=== PATIENT | female | born 1975 | race Two or more races ===

== ENCOUNTER 2022-06-17 20:16 | Emergency (ER) | payer MEDICAID, OTHER ==
[~2022-06-17] VITALS: Ht 157.5 cm; Wt 55.0 kg
[2022-06-17] MEDS ORDERED: ALBUTEROL SULF 2.5 MG/0.5ML(0.5%) NEB SOLN NEB ONE (20:45)
[2022-06-17] MEDS ORDERED: IPRATROPIUM BROM 0.5 MG/2.5ML INH SOL NEB ONE (20:45)
[2022-06-17 21:58] LABS: Basophils # (auto) 0 10 ^3/uL (0-0.2); Basophils % (auto) 0.5 % (0.0-2.0); Eosinophils # (auto) 0.1 10 ^3/uL (0-0.8); Eosinophils % (auto) 1.5 % (0.0-7.0); Hematocrit 36.8 % (36.0-46.0); Hemoglobin 12.8 g/dL (12.2-16.2); Lymphocytes # (auto) 1.4 10 ^3/uL (0.4-5.4); Lymphocytes % (auto) 24.8 % (10.0-50.0); Mean Corpuscular Hemoglobin 33.1 pg (28.0-32.0); Mean Corpuscular Hgb Conc. 34.7 g/dL (32.0-36.0); Mean Corpuscular Volume 95.4 fL (80.0-100.0); Monocytes # (auto) 0.9 10 ^3/uL (0-1.3); Monocytes % (auto) 15.6 % (0.0-12.0); Neutrophils # (auto) 3.3 10 ^3/uL (1.6-8.6); Neutrophils % (auto) 57.6 % (37.0-80.0); Nucleated Red Blood Cells % 0.1 %; Red Blood Cells 3.86 10^6/uL (4.0-5.20); Red Cell Distribution Width 12.6 % (11.8-14.3); White Blood Cell 5.8 10^3/uL (4.4-10.8)
[2022-06-17 22:15] LABS: Albumin 3.6 g/dL (3.4-5.0); Calcium 7.8 mg/dL (8.5-10.1); Potassium 3.7 mmol/L (3.5-5.1)
[2022-06-17 22:20] LABS: BUN/Creatinine Ratio 14.5; Bilirubin, Total 0.2 mg/dL (0.2-1.0); Total Protein 6.7 g/dL (6.4-8.2)
[2022-06-17] MEDS ORDERED: DexAMETHasone SOD PHOS 10MG/1ML VIAL INJ IM ONE (22:45)
[2022-06-18] MEDS ORDERED: AZIT250T9 PO (00:09)
[2022-06-18] MEDS ORDERED: PRED20TA2 PO (00:09)
[2022-06-18] MEDS ORDERED: AZITHROMYCIN 250 MG TAB PO ONE (00:15)
[2022-06-18 01:20] VITALS: BP 117/70
== END 2022-06-18 02:58 | disposition home or self-care (01) ==
LOC: ER 20:16
DX: J40 Bronchitis, not specified as acute or chronic (principal)
CPT/HCPCS: 36415; 71046; 80053; 85025; 94640; 96372; 99284; J1100; J7644

== ENCOUNTER 2022-09-11 16:17 | Inpatient (IN) | payer MEDICAID ==
[~2022-09-11] VITALS: Ht 162.6 cm; Wt 61.8 kg
[2022-09-11] MEDS: ACCU-CHEK COMFORT CURVE STRIP VI SCH (01:15)
[2022-09-11] MEDS: InsuLIN REG 1unit/0.01ml Soln (100units/ml) SC SCH (01:15)
[2022-09-11] MEDS: CARVEDILOL 3.125 MG TAB PO SCH (01:15)
[2022-09-11] MEDS: ATORVASTATIN 20 MG TAB PO SCH (01:15)
[~2022-09-11 16:17] MED LIST: AZIT250T9 PO; PRED20TA2 PO
[2022-09-11] MEDS ORDERED: ASPirin 325 MG TAB PO ONE (16:30)
[2022-09-11 17:20] LABS: Basophils # (auto) 0.1 10 ^3/uL (0-0.2); Basophils % (auto) 0.7 % (0.0-2.0); Eosinophils # (auto) 0.1 10 ^3/uL (0-0.8); Eosinophils % (auto) 1.2 % (0.0-7.0); Hematocrit 41.7 % (36.0-46.0); Hemoglobin 13.8 g/dL (12.2-16.2); Lymphocytes # (auto) 2.2 10 ^3/uL (0.4-5.4); Mean Corpuscular Hemoglobin 31.5 pg (28.0-32.0); Mean Corpuscular Hgb Conc. 33.1 g/dL (32.0-36.0); Mean Corpuscular Volume 95.1 fL (80.0-100.0); Monocytes # (auto) 0.5 10 ^3/uL (0-1.3); Monocytes % (auto) 6.2 % (0.0-12.0); Neutrophils # (auto) 4.5 10 ^3/uL (1.6-8.6); Neutrophils % (auto) 61.9 % (37.0-80.0); Red Blood Cells 4.39 10^6/uL (4.0-5.20); Red Cell Distribution Width 13.1 % (11.8-14.3); White Blood Cell 7.3 10^3/uL (4.4-10.8)
[2022-09-11 17:40] LABS: Albumin 4.3 g/dL (3.4-5.0); Calcium 8.5 mg/dL (8.5-10.1); Potassium 4.2 mmol/L (3.5-5.1)
[2022-09-11 17:43] LABS: BUN/Creatinine Ratio 24.6; Bilirubin, Total 0.5 mg/dL (0.2-1.0); Total Protein 6.6 g/dL (6.4-8.2)
[2022-09-11] MEDS ORDERED: HYDROcodone-ACET 5/325MG TAB PO PRN (21:15)
[2022-09-11] MEDS ORDERED: DEXTROSE (50%) 50ML SYRG IV PRN (21:15)
[2022-09-11] MEDS ORDERED: MORPHINE SULFATE INJ 2 MG/ml SYRG IV PRN ×2 (21:15→23:15)
[2022-09-11] MEDS ORDERED: ONDANSETRON HCL 4 MG/2 ML VIAL IV PRN (21:15)
[2022-09-11] MEDS ORDERED: DOCUSATE SOD 100 MG CAP PO PRN (21:15)
[2022-09-11] MEDS ORDERED: TEMAZEPAM 15 MG CAP PO PRN (21:15)
[2022-09-11] MEDS ORDERED: NITROGLYCERIN 0.4 MG SL TAB SL PRN (23:15)
[2022-09-12] MEDS: SODIUM CHLOR 0.9% PF (SALINE LOCK) 10ML VIAL/SYR IV SCH ×4 (01:15→22:09)
[2022-09-12 06:07] LABS: Basophils # (auto) 0.1 10 ^3/uL (0-0.2); Basophils % (auto) 1.1 % (0.0-2.0); Eosinophils # (auto) 0.1 10 ^3/uL (0-0.8); Eosinophils % (auto) 2.4 % (0.0-7.0); Hematocrit 40.4 % (36.0-46.0); Hemoglobin 13.6 g/dL (12.2-16.2); Lymphocytes # (auto) 2.5 10 ^3/uL (0.4-5.4); Mean Corpuscular Hemoglobin 31.9 pg (28.0-32.0); Mean Corpuscular Hgb Conc. 33.5 g/dL (32.0-36.0); Mean Corpuscular Volume 95.1 fL (80.0-100.0); Monocytes # (auto) 0.6 10 ^3/uL (0-1.3); Monocytes % (auto) 9.8 % (0.0-12.0); Neutrophils # (auto) 2.5 10 ^3/uL (1.6-8.6); Neutrophils % (auto) 43.7 % (37.0-80.0); Nucleated Red Blood Cells % 0.2 %; Red Blood Cells 4.25 10^6/uL (4.0-5.20); White Blood Cell 5.8 10^3/uL (4.4-10.8)
[2022-09-12 06:19] LABS: Albumin 3.9 g/dL (3.4-5.0); Calcium 8.2 mg/dL (8.5-10.1); Potassium 4.4 mmol/L (3.5-5.1)
[2022-09-12 06:22] LABS: BUN/Creatinine Ratio 23.3; Bilirubin, Total 0.7 mg/dL (0.2-1.0); Total Protein 6.5 g/dL (6.4-8.2)
[2022-09-12] MEDS: ACCU-CHEK COMFORT CURVE STRIP VI SCH ×4 (09:02→22:09)
[2022-09-12] MEDS: InsuLIN REG 1unit/0.01ml Soln (100units/ml) SC SCH ×4 (09:02→22:00)
[2022-09-12] MEDS: ACETAMINOPHEN 325 MG TAB PO PRN (11:20)
[2022-09-12] MEDS: ASPirin 81 mg TAB PO SCH (11:25)
[2022-09-12] MEDS: CARVEDILOL 3.125 MG TAB PO SCH ×2 (11:25→22:00)
[2022-09-12 12:13] VITALS: BP 102/56
[2022-09-12 13:00] VITALS: BP 102/56
[2022-09-12 16:36] VITALS: BP 105/60
[2022-09-12 22:00] VITALS: BP 99/50
[2022-09-12] MEDS: ATORVASTATIN 20 MG TAB PO SCH (22:08)
[2022-09-13 05:00] VITALS: BP 102/57
[2022-09-13] MEDS: SODIUM CHLOR 0.9% PF (SALINE LOCK) 10ML VIAL/SYR IV SCH ×3 (06:29→21:56)
[2022-09-13] MEDS: ACCU-CHEK COMFORT CURVE STRIP VI SCH ×4 (06:29→21:56)
[2022-09-13] MEDS: InsuLIN REG 1unit/0.01ml Soln (100units/ml) SC SCH ×4 (06:32→21:57)
[2022-09-13 07:07] LABS: Urine Bacteria NONE SEEN /hpf (None Seen); Urine Blood Negative /uL (Negative); Urine Mucus FEW (None Seen); Urine Specific Gravity 1.026 (1.001-1.035); Urine WBC 56 /hpf (0 - 5)
[2022-09-13] MEDS ORDERED: ADENOSINE 52 MG in GIVE UN-DILUTED 0 ML IV STA (08:22)
[2022-09-13 08:41] VITALS: BP 104/48
[2022-09-13 09:20] VITALS: BP 112/66
[2022-09-13] MEDS: CARVEDILOL 3.125 MG TAB PO SCH ×2 (10:00→21:55)
[2022-09-13] MEDS: ASPirin 81 mg TAB PO SCH (11:41)
[2022-09-13] MEDS: ACETAMINOPHEN 325 MG TAB PO PRN (12:22)
[2022-09-13 13:00] VITALS: BP 91/51
[2022-09-13] MEDS ORDERED: methylPREDNISolone SOD SUCC 40 MG/ML VL IV ONE (15:30)
[2022-09-13] MEDS ORDERED: diphenhdrAMINE HCL 50 MG/1 ML VL IV ONE (15:30)
[2022-09-13] MEDS ORDERED: FAMOTIDINE (10MG/ML) 2ML VL IV ONE (15:30)
[2022-09-13 16:33] VITALS: BP 102/51
[2022-09-13] MEDS: ATORVASTATIN 20 MG TAB PO SCH (21:42)
[2022-09-13] MEDS: FAMOTIDINE (10MG/ML) 2ML VL IV SCH (21:42)
[2022-09-13] MEDS: diphenhdrAMINE HCL 50 MG/1 ML VL IV SCH (21:54)
[2022-09-13 23:45] VITALS: BP 98/52
[2022-09-14] VITALS (11 sets, daily range): BP systolic 94–124; BP diastolic 43–67
[2022-09-14 06:25] LABS: Partial Thromboplastin Time 28.7 sec (24.6-33.4)
[2022-09-14 06:28] LABS: Calcium 8.1 mg/dL (8.5-10.1); Potassium 4.2 mmol/L (3.5-5.1)
[2022-09-14] MEDS: SODIUM CHLOR 0.9% PF (SALINE LOCK) 10ML VIAL/SYR IV SCH ×3 (06:29→22:55)
[2022-09-14] MEDS: ACCU-CHEK COMFORT CURVE STRIP VI SCH ×4 (06:30→22:56)
[2022-09-14] MEDS: InsuLIN REG 1unit/0.01ml Soln (100units/ml) SC SCH ×4 (06:32→22:00)
[2022-09-14 06:33] LABS: BUN/Creatinine Ratio 18.1
[2022-09-14 06:44] LABS: Basophils # (auto) 0 10 ^3/uL (0-0.2); Basophils % (auto) 0.6 % (0.0-2.0); Eosinophils # (auto) 0.2 10 ^3/uL (0-0.8); Eosinophils % (auto) 2.2 % (0.0-7.0); Hematocrit 37.5 % (36.0-46.0); Lymphocytes # (auto) 2.6 10 ^3/uL (0.4-5.4); Lymphocytes % (auto) 35.1 % (10.0-50.0); Mean Corpuscular Hemoglobin 32.6 pg (28.0-32.0); Mean Corpuscular Hgb Conc. 34.5 g/dL (32.0-36.0); Mean Corpuscular Volume 94.6 fL (80.0-100.0); Monocytes # (auto) 0.5 10 ^3/uL (0-1.3); Monocytes % (auto) 7.3 % (0.0-12.0); Neutrophils # (auto) 4.1 10 ^3/uL (1.6-8.6); Neutrophils % (auto) 54.8 % (37.0-80.0); Nucleated Red Blood Cells % 0.1 %; Red Blood Cells 3.97 10^6/uL (4.0-5.20); Red Cell Distribution Width 13.1 % (11.8-14.3); White Blood Cell 7.4 10^3/uL (4.4-10.8)
[2022-09-14] MEDS ORDERED: methylPREDNISolone SOD SUCC 40 MG/ML VL IV SCH (10:00)
[2022-09-14] MEDS: CARVEDILOL 3.125 MG TAB PO SCH ×2 (10:00→22:57)
[2022-09-14] MEDS: diphenhdrAMINE HCL 50 MG/1 ML VL IV SCH ×2 (12:15→22:55)
[2022-09-14] MEDS: FAMOTIDINE (10MG/ML) 2ML VL IV SCH ×2 (12:15→22:55)
[2022-09-14] MEDS: ASPirin 81 mg TAB PO SCH (12:16)
[2022-09-14] MEDS ORDERED: IODIXANOL 320MG/ML 100ML BTL IV ONE (12:55)
[2022-09-14] MEDS ORDERED: ANGIOMAX 250 MG VIAL IV ONE (16:29)
[2022-09-14] MEDS ORDERED: HEPARIN SODIUM (PORCINE) 5000 UNITS/ML 1ML VIAL ONE (16:29)
[2022-09-14] MEDS ORDERED: MIDAZOLAM HCL 2MG/2ML 2ml VIAL (1mg/ml) ONE (16:30)
[2022-09-14] MEDS ORDERED: SODIUM CHL 0.9% 0 ML ONE (16:30)
[2022-09-14] MEDS ORDERED: fentaNYL CITRATE 100 MCG/2 ML VL ONE (16:30)
[2022-09-14] MEDS ORDERED: VERAPAMIL 2.5MG/ML INJ 2ML VIAL IV ONE (16:30)
[2022-09-14] MEDS ORDERED: diphenhdrAMINE HCL 50 MG/1 ML VL ONE (16:43)
[2022-09-14] MEDS ORDERED: methylPREDNISolone SOD SUCC 125 MG/2 ML VL ONE (16:43)
[2022-09-14] MEDS ORDERED: FAMOTIDINE (10MG/ML) 2ML VL IV ONE (16:43)
[2022-09-14] MEDS ORDERED: EPINEPHrine HCL 1 MG/10 ML SYRG ONE (16:52)
[2022-09-14] MEDS: ATORVASTATIN 20 MG TAB PO SCH (22:56)
[2022-09-15 05:28] VITALS: BP 92/51
[2022-09-15] MEDS: SODIUM CHLOR 0.9% PF (SALINE LOCK) 10ML VIAL/SYR IV SCH ×2 (05:47→14:00)
[2022-09-15] MEDS: ACCU-CHEK COMFORT CURVE STRIP VI SCH ×3 (05:48→17:00)
[2022-09-15] MEDS: InsuLIN REG 1unit/0.01ml Soln (100units/ml) SC SCH ×3 (05:48→17:00)
[2022-09-15 08:00] VITALS: BP 101/72
[2022-09-15 09:00] VITALS: BP 92/47
[2022-09-15 13:00] VITALS: BP 108/60
[2022-09-15 17:00] VITALS: BP 104/66
== END 2022-09-15 19:00 | disposition home or self-care (01) | DRG 192 ==
LOC: EDBD 16:17 → ER 16:19 → TELE 23:13 → TELE-WESTW 09-12 10:55
PROVIDERS: ADMIT Nurse Practitioner Family; ATTEND Internal Medicine
PROC: 4A023N7 Measurement of Cardiac Sampling and Pressure, Left Heart, Percutaneous Approach (ICD-10-PCS; principal; 2022-09-14)
PROC: B211YZZ Fluoroscopy of Multiple Coronary Arteries using Other Contrast (ICD-10-PCS; 2022-09-14)
PROC: B215YZZ Fluoroscopy of Left Heart using Other Contrast (ICD-10-PCS; 2022-09-14)
DX: R07.9 Chest pain, unspecified (principal); E11.9 Type 2 diabetes mellitus without complications; I10 Essential (primary) hypertension; J45.909 Unspecified asthma, uncomplicated; R55 Syncope and collapse; Z20.822 Contact with and (suspected) exposure to COVID-19; K44.9 Diaphragmatic hernia without obstruction or gangrene; Z82.49 Family history of ischemic heart disease and other diseases of the circulatory system; Z88.0 Allergy status to penicillin; Z90.710 Acquired absence of both cervix and uterus; Z91.041 Radiographic dye allergy status; Z90.49 Acquired absence of other specified parts of digestive tract
CPT/HCPCS: 36415; 70450; 71045; 78452; 80048; 80053; 80061; 81001; 82962; 83036; 84443; 84484; 84702; 85025; 85379; 85610; 85730; 86850; 86900; 86901; 87426; 93005; 93017; 93306; 93458; 99152; G0378; J0153; J1815; J2250; J3490; Q9967